=== PATIENT | female | born 1955 | race Caucasian/White ===

== ENCOUNTER 2016-07-03 14:55 | Day surgery (SDC) | payer OTHER ==
[~2016-07-03] VITALS: Ht 157.5 cm; Wt 99.8 kg
[~2016-07-03 14:55] MED LIST: AMARYL2 MG PO; COMBIVENT INH14.7 GM IH; CYMBALTA30 MG PO; DELTASONE10 MG PO; FLEXERIL10 MG PO; FLONASE16 G1 BOTH NARES; Flonase BOTH NARES; Flovent 220 mcg IH; HYDROCHLOROTH12.5 M1 PO; HYDROCHLOROTHIA25 MG PO; LOSARTAN POTAS100 MG PO; LYRICA50 MG PO; METFORMIN HCL500 M1 PO; MICARDIS80 MG PO; Medrol Dosepak PO; NABUMETONE500 MG PO; OMEPRAZOLE40 M1 PO; OXAYDO5 MG PO; PREDNISONE10 MG PO; PREDNISONE20 MG PO; PROAIR HFA8.5 GM IH; PROTONIX40 MG PO; PROVENTIL,2.5 MG/3 M IH; SIMVASTATIN10 MG PO; SINGULAIR10 MG PO; SPIRIVA1 INHALATI IH; SYMBICORT60 INHALAT IH; TESSALON PERLE100 MG PO; VERAMYST10 GM NS; VICODIN 5-3001 EACH PO; WELCHOL625 MG PO; ZITHROMAX Z-PA250 MG PO; ZYRTEC10 M3 PO; Zantac PO
[2016-07-03 15:38] LABS: POINT-OF-CARE METER ID UU14174212
== END 2016-07-03 16:58 | disposition home or self-care (01) ==
LOC: PAIN 14:55 → SDC 15:15 → PAIN 16:58
PROVIDERS: Anesthesiology Pain Medicine
PROC: 015B3ZZ Destruction of Lumbar Nerve, Percutaneous Approach (ICD-10-PCS; principal; 2016-07-03)
DX: M47.816 Spondylosis without myelopathy or radiculopathy, lumbar region (principal); F41.9 Anxiety disorder, unspecified; Z98.1 Arthrodesis status; M51.26 Other intervertebral disc displacement, lumbar region; M54.16 Radiculopathy, lumbar region; M50.10 Cervical disc disorder with radiculopathy, unspecified cervical region; M50.30 Other cervical disc degeneration, unspecified cervical region; E11.42 Type 2 diabetes mellitus with diabetic polyneuropathy; I10 Essential (primary) hypertension; M06.9 Rheumatoid arthritis, unspecified; M19.90 Unspecified osteoarthritis, unspecified site; E66.01 Morbid (severe) obesity due to excess calories; E87.5 Hyperkalemia; K21.9 Gastro-esophageal reflux disease without esophagitis; Z79.4 Long term (current) use of insulin; Z68.41 Body mass index [BMI] 40.0-44.9, adult; Z88.8 Allergy status to other drugs, medicaments and biological substances
CPT/HCPCS: 82948; J1030; J2250; J3010; S0020

== ENCOUNTER 2016-07-10 14:40 | Day surgery (SDC) | payer OTHER ==
[~2016-07-10] VITALS: Ht 157.5 cm; Wt 99.8 kg
[2016-07-10 16:34] LABS: POINT-OF-CARE METER ID UU14174212
== END 2016-07-10 17:39 | disposition home or self-care (01) ==
LOC: PAIN 14:40 → SDC 15:00 → PAIN 17:39
PROVIDERS: Anesthesiology Pain Medicine
DX: M47.897 Other spondylosis, lumbosacral region (principal); M51.26 Other intervertebral disc displacement, lumbar region; F41.1 Generalized anxiety disorder; M54.16 Radiculopathy, lumbar region; M48.06 Spinal stenosis, lumbar region; E11.9 Type 2 diabetes mellitus without complications; I10 Essential (primary) hypertension; E78.5 Hyperlipidemia, unspecified; K21.9 Gastro-esophageal reflux disease without esophagitis
CPT/HCPCS: 82948; J1030; J2250; J3010; S0020

== ENCOUNTER 2017-01-23 10:42 | Inpatient (IN) | payer OTHER ==
[~2017-01-23] VITALS: Ht 157.5 cm; Wt 107.1 kg
[~2017-01-23 10:42] MED LIST changes: -OXAYDO5 MG PO; +OXYCODONE HCL10 MG PO
[2017-01-23 11:40] LABS: EOSINOPHIL (%) 3.9 % (0-5); EOSINOPHIL COUNT 0.2 K/uL (0-0.3); IMMATURE GRANULOCYTE (%) 0.4 % (0.0-0.7); INSTRUMENT ABS NEUTROPHIL CT 2.3 K/uL; MCHC 32.1 G/DL (30.0-36.0); MCV 87.2 FL (83-99); MEAN PLAT.VOLUME 11.1 uM^3 (9.5-12.4); MONOCYTE (%) 6.2 % (3-12); MONOCYTE COUNT 0.3 K/uL (0-0.8); NEUTROPHIL (%) 48.3 % (45-76); NEUTROPHIL COUNT 2.3 K/uL (1.8-6.4); PLATELET COUNT 190 K/uL (156-360); RBC DIS.WIDTH-CV 12.9 % (11.8-14.6); RBC DIS.WIDTH-SD 41.2 % (39-53); RED BLOOD COUNT 4.36 M/uL (3.80-5.20); WHITE BLOOD COUNT 4.8 K/uL (4.1-10.2)
[2017-01-23 11:51] LABS: PROTHROMBIN TIME 10.5 SEC (10.2-12.9)
[2017-01-23 11:53] LABS: D-DIMER ELISA < 150.00 ng/mLDDU (<230)
[2017-01-23 11:56] LABS: CHLORIDE 107 mEq/L (99-109); POTASSIUM 4.2 mEq/L (3.7-5.4); SODIUM 141 mEq/L (136-147)
[2017-01-23 11:58] LABS: GLUCOSE 285 mg/dL (70-99)
[2017-01-23 12:00] LABS: ANION GAP 9 MEQ/L (2-14); TOTAL BILIRUBIN 0.4 mg/dL (0.0-1.0)
[2017-01-23 12:01] LABS: TROP-I INTERPRETATION NEGATIVE; TROPONIN-I < 0.01 ng/mL (0.0-0.30)
[2017-01-23 12:02] LABS: ALKALINE PHOSPHATASE 109 IU/L (3-129); GFR ESTIMATE (CALCULATED) 44 mL/min/
[2017-01-23 12:03] LABS: UREA NITROGEN (BUN) 24 mg/dL (9-23)
[2017-01-23 12:05] LABS: LIPASE 38 U/L (1.0-51.0)
[2017-01-23 14:13] LABS: TROP-I INTERPRETATION NEGATIVE; TROPONIN-I < 0.01 ng/mL (0.0-0.30)
[2017-01-23] MEDS ORDERED: LYRICA75 MG PO (15:02)
[2017-01-23] MEDS ORDERED: MELOXICAM15 MG PO (15:09)
[2017-01-23] MEDS ORDERED: AZELASTINE205.5 MCG/ BOTH NARES (15:10)
[2017-01-23 16:03] VITALS: BP 164/77
[2017-01-23 16:08] LABS: POINT-OF-CARE METER ID UU13113700
[2017-01-23 19:37] LABS: TROP-I INTERPRETATION NEGATIVE; TROPONIN-I < 0.01 ng/mL (0.0-0.30)
[2017-01-23 21:00] VITALS: BP 161/99
[2017-01-23 21:08] LABS: POINT-OF-CARE METER ID UU13113700
[2017-01-23 23:44] VITALS: BP 100/48
[2017-01-24 01:02] LABS: TROP-I INTERPRETATION NEGATIVE; TROPONIN-I < 0.01 ng/mL (0.0-0.30)
[2017-01-24 04:02] VITALS: BP 131/70
[2017-01-24 05:56] LABS: HDL CHOLESTEROL 47 MG/DL (Desirable>=50); LDL CHOLESTEROL 109 mg/dL (Desirable<100); NON-HDL CHOLESTEROL 139 mg/dL (Desirable<160); TOTAL CHOLESTEROL 186 mg/dL (Desirable<200); TRIGLYCERIDES 152 MG/DL (Normal: <150)
[2017-01-24 07:11] LABS: Estimated Average Glucose 174 mg/dL (70-123); HEMOGLOBIN A1c (GLYCOHEMOGLOB) 7.7 % HGB (Below 5.7)
[2017-01-24 07:48] VITALS: BP 142/72
[2017-01-24 15:28] VITALS: BP 144/68
[2017-01-24 16:45] LABS: POINT-OF-CARE METER ID UU13113781
[2017-01-24 21:24] VITALS: BP 165/69
[2017-01-25 01:35] VITALS: BP 104/51
[2017-01-25] MEDS ORDERED: LOPRESSOR25 MG PO (08:40)
[2017-01-25] MEDS ORDERED: CLOPIDOGREL75 MG PO (08:40)
[2017-01-25 09:34] VITALS: BP 144/63
== END 2017-01-25 14:37 | disposition home or self-care (01) | DRG 392 ==
LOC: EME 10:42 → ENRESERV 14:39 → EDOF 14:39 → 5WEST 14:39 → EDOF 14:39 → ENRESERV 14:49 → 5WEST 15:23 → ENRESERV 01-24 11:04 → 5WEST 01-24 11:05 → ENRESERV 01-24 11:45 → 4EAST 01-24 15:29 → ENPENDDIS 01-25 → 4EAST 01-25 14:37
PROVIDERS: Emergency Medicine; Hospitalist; Internal Medicine; Physician Assistant Medical
PROC: 4A023N7 Measurement of Cardiac Sampling and Pressure, Left Heart, Percutaneous Approach (ICD-10-PCS; principal; 2017-01-24)
PROC: B2111ZZ Fluoroscopy of Multiple Coronary Arteries using Low Osmolar Contrast (ICD-10-PCS; principal; 2017-01-24)
DX: K21.9 Gastro-esophageal reflux disease without esophagitis (principal); R07.9 Chest pain, unspecified; K75.9 Inflammatory liver disease, unspecified; Z68.41 Body mass index [BMI] 40.0-44.9, adult; K27.9 Peptic ulcer, site unspecified, unspecified as acute or chronic, without hemorrhage or perforation; I50.32 Chronic diastolic (congestive) heart failure; J44.9 Chronic obstructive pulmonary disease, unspecified; I42.9 Cardiomyopathy, unspecified; I11.0 Hypertensive heart disease with heart failure; E11.9 Type 2 diabetes mellitus without complications; E78.5 Hyperlipidemia, unspecified; K76.0 Fatty (change of) liver, not elsewhere classified; E66.9 Obesity, unspecified; M19.90 Unspecified osteoarthritis, unspecified site; M79.7 Fibromyalgia; Z72.0 Tobacco use; Z79.02 Long term (current) use of antithrombotics/antiplatelets; Z79.899 Other long term (current) drug therapy; Z80.0 Family history of malignant neoplasm of digestive organs
CPT/HCPCS: 71010; 76705; 80053; 80061; 82948; 83036; 83690; 84484; 85025; 85379; 85610; 85730; 93005; 99202; 99281; 99285; C1769; C1887; G0378; J1644; J1815; J2250; J2270; J3010; J7030

== ENCOUNTER 2017-12-26 09:36 | Day surgery (SDC) | payer OTHER ==
[~2017-12-26] VITALS: Ht 157.5 cm; Wt 104.3 kg
[~2017-12-26 09:36] MED LIST changes: +ASTEPRO 0.15%30 ML BOTH NARES; +AZELASTINE205.5 MCG/ BOTH NARES; +CALCIUM 500 MG1 EACH PO; +CLOPIDOGREL75 MG PO; +COZAAR100 MG PO; +LOPRESSOR25 MG PO; +LYRICA75 MG PO; +MELOXICAM15 MG PO; +RELAFEN500 M1 PO; +VITAMIN B-12500 MC5 SL
== END 2017-12-26 11:30 | disposition home or self-care (01) ==
LOC: PAIN 09:36 → SDC 10:00 → PAIN 11:30
PROVIDERS: Anesthesiology Pain Medicine
DX: M48.061 Spinal stenosis, lumbar region without neurogenic claudication (principal); M47.816 Spondylosis without myelopathy or radiculopathy, lumbar region; M51.26 Other intervertebral disc displacement, lumbar region; M79.7 Fibromyalgia; E66.01 Morbid (severe) obesity due to excess calories; Z68.41 Body mass index [BMI] 40.0-44.9, adult; I10 Essential (primary) hypertension; E11.9 Type 2 diabetes mellitus without complications; J45.909 Unspecified asthma, uncomplicated; Z88.0 Allergy status to penicillin; Z88.2 Allergy status to sulfonamides; Z88.6 Allergy status to analgesic agent; Z88.8 Allergy status to other drugs, medicaments and biological substances; Z79.891 Long term (current) use of opiate analgesic; Z79.84 Long term (current) use of oral hypoglycemic drugs
CPT/HCPCS: 82948; J1030; J1885; J2250; J3010; S0020

== ENCOUNTER 2018-01-02 08:47 | Day surgery (SDC) | payer OTHER ==
[~2018-01-02] VITALS: Ht 157.5 cm; Wt 104.3 kg
== END 2018-01-02 10:58 | disposition home or self-care (01) ==
LOC: PAIN 08:47 → SDC 09:00 → PAIN 09:00
PROVIDERS: Anesthesiology Pain Medicine
PROC: BR161ZZ Fluoroscopy of Lumbar Facet Joint(s) using Low Osmolar Contrast (ICD-10-PCS; principal; 2018-01-02)
PROC: 3E0T3TZ Introduction of Destructive Agent into Peripheral Nerves and Plexi, Percutaneous Approach (ICD-10-PCS; principal; 2018-01-02)
DX: M47.816 Spondylosis without myelopathy or radiculopathy, lumbar region (principal); M79.7 Fibromyalgia; M51.16 Intervertebral disc disorders with radiculopathy, lumbar region; M48.061 Spinal stenosis, lumbar region without neurogenic claudication; M47.812 Spondylosis without myelopathy or radiculopathy, cervical region; I11.0 Hypertensive heart disease with heart failure; I50.9 Heart failure, unspecified; K21.9 Gastro-esophageal reflux disease without esophagitis; E11.9 Type 2 diabetes mellitus without complications; E78.5 Hyperlipidemia, unspecified; G47.30 Sleep apnea, unspecified; E66.01 Morbid (severe) obesity due to excess calories; Z68.41 Body mass index [BMI] 40.0-44.9, adult; Z79.02 Long term (current) use of antithrombotics/antiplatelets; Z79.84 Long term (current) use of oral hypoglycemic drugs; Z79.891 Long term (current) use of opiate analgesic; Z88.0 Allergy status to penicillin; Z88.2 Allergy status to sulfonamides; Z88.6 Allergy status to analgesic agent; Z88.8 Allergy status to other drugs, medicaments and biological substances
CPT/HCPCS: 82948; J1030; J2250; J3010; S0020